=== PATIENT | female | born 1985 | race African-American/Black ===

== ENCOUNTER 2017-03-31 17:00 | Emergency (ER) | payer OTHER, MEDICAID ==
[~2017-03-31] VITALS: Ht 162.6 cm; Wt 90.7 kg
[~2017-03-31 17:00] MED LIST: FLEXERIL PO; IBUPROFEN 800800 M1 PO; NORCO 5-325 TA1 EACH PO
[2017-03-31] MEDS ORDERED: IBUPROFEN 800800 M1 PO (17:10)
[2017-03-31] MEDS ORDERED: CYCLOBENZAPRINE5 MG PO (17:10)
[2017-03-31] MEDS ORDERED: FLEXERIL PO (17:19)
[2017-03-31] MEDS ORDERED: NAPROSYN500 MG PO (17:19)
[2017-03-31] MEDS ORDERED: LIDODERM1 EACH TOP (17:19)
[2017-03-31 17:50] VITALS: BP 115/69
== END 2017-03-31 17:54 | disposition home or self-care (01) ==
LOC: M.ERS 17:00
DX: G44.209 Tension-type headache, unspecified, not intractable (principal); S39.012A Strain of muscle, fascia and tendon of lower back, initial encounter; Z88.8 Allergy status to other drugs, medicaments and biological substances; W10.8XXA Fall (on) (from) other stairs and steps, initial encounter; Y93.89 Activity, other specified; Y92.89 Other specified places as the place of occurrence of the external cause; Y99.8 Other external cause status

== ENCOUNTER 2017-10-31 12:36 | Emergency (ER) | payer OTHER, MEDICAID ==
[~2017-10-31] VITALS: Ht 157.5 cm; Wt 90.7 kg
[~2017-10-31 12:36] MED LIST changes: +CYCLOBENZAPRINE5 MG PO; +LIDODERM1 EACH TOP; +NAPROSYN500 MG PO
[2017-10-31 12:47] VITALS: BP 127/84
[2017-10-31] MEDS ORDERED: AMBIEN 5 MG TABL5 M1 PO (12:49)
[2017-10-31] MEDS ORDERED: AMOXICILLIN 50500 MG PO (13:04)
[2017-10-31] MEDS ORDERED: NORCO 5-325 TA1 EACH PO (13:04)
== END 2017-10-31 13:17 | disposition home or self-care (01) ==
LOC: M.ERS 12:36
DX: K02.9 Dental caries, unspecified (principal); G43.909 Migraine, unspecified, not intractable, without status migrainosus; G89.29 Other chronic pain; M54.9 Dorsalgia, unspecified; Z88.6 Allergy status to analgesic agent; Z88.8 Allergy status to other drugs, medicaments and biological substances

== ENCOUNTER 2018-03-03 12:35 | Emergency (ER) | payer OTHER, MEDICAID ==
[~2018-03-03] VITALS: Ht 157.5 cm; Wt 88.5 kg
[~2018-03-03 12:35] MED LIST changes: +AMBIEN 5 MG TABL5 M1 PO; +AMOXICILLIN 50500 MG PO
[2018-03-03] MEDS ORDERED: CLONAZEPAM 0.50.5 M1 PO (12:45)
[2018-03-03] MEDS ORDERED: PROTONIX 20 MG20 M1 PO (12:45)
[2018-03-03 13:07] LABS: ABSOLUTE EOSINOPHILS 0.1 thou/uL (0.0-0.7); ABSOLUTE LYMPHOCYTES 1.8 thou/uL (0.8-5.3); ABSOLUTE MONOCYTES 0.3 thou/uL (0.0-1.2); ABSOLUTE NEUTROPHILS 2.3 thou/uL (1.6-8.1); EOSINOPHILS 2.7 %; HEMATOCRIT 35.7 % (37.0-47.0); HEMOGLOBIN 11.6 gm/dL (12.0-15.0); MCH 25.8 pg (26.0-34.0); MCHC 32.6 g/dL (28.0-37.0); MCV 79.3 fL (80.0-100.0); MONOCYTES 6.7 %; MPV 7.9 fl. (7.2-11.1); NUCLEATED RBCS 0 /100WBC; PLATELET COUNT* 302 thou/uL (150-400); POLYS 50.6 %; RDW-CV 16.8 % (10.5-14.5); WBC 4.6 thou/uL (4.0-11.0)
[2018-03-03 13:09] LABS: URINE CLARITY CLOUDY; URINE COLOR RED
[2018-03-03 13:13] LABS: CALCIUM 9.2 mg/dL (8.5-10.1); CREATININE 0.9 mg/dL (0.6-1.3); POTASSIUM 3.5 mmol/L (3.5-5.1)
[2018-03-03 13:18] LABS: ALBUMIN 3.3 g/dL (3.4-5.0); TOTAL BILIRUBIN 0.4 mg/dL (<0.1-1.0); TOTAL PROTEIN 8.3 g/dL (6.4-8.2)
[2018-03-03 13:39] LABS: URINE SPECIFIC GRAVITY 1.025 (1.005-1.030)
[2018-03-03 13:40] LABS: ACETEST (KETONE CONFIRMATORY) Small (Negative); ICTOTEST (BILI CONFIRMATORY) Negative (Negative); URINE BILIRUBIN ND (Negative); URINE GLUCOSE-RANDOM ND (Negative); URINE KETONES ND (Negative); URINE PROTEIN ND (Negative); URINE REDUCING SUBSTANCE NEGATIVE (Negative)
[2018-03-03 13:41] LABS: URINE BLOOD ND (Negative); URINE LEUKOCYTES-REFLEX ND (Negative); URINE NITRITE-REFLEX ND (Negative); URINE UROBILINOGEN ND E.U./dl (0.2-1.0)
[2018-03-03 13:44] LABS: SQUAMOUS >10 Many /LPF (0-3)
[2018-03-03 13:46] LABS: URINE RBC >20 Many /HPF (0-2)
[2018-03-03 13:47] LABS: MUCUS >6 Heavy strn/LPF (None Seen)
[2018-03-03 13:51] LABS: BACTERIA-REFLEX >30 Many /HPF (None Seen); CASTS None Seen /LPF (None Seen); CRYSTALS None Seen /LPF (None Seen); URINE WBC-REFLEX 6-15 Few /HPF (0-5)
[2018-03-03] MEDS ORDERED: NORCO 5-325 TA1 EACH PO (15:26)
[2018-03-03] MEDS ORDERED: NYSTATIN100000 UNI PO (15:35)
[2018-03-03 15:36] VITALS: BP 110/79
== END 2018-03-03 15:37 | disposition home or self-care (01) ==
LOC: M.ERS 12:35
PROVIDERS: Physician Assistant
DX: N83.201 Unspecified ovarian cyst, right side (principal); G43.909 Migraine, unspecified, not intractable, without status migrainosus; M54.9 Dorsalgia, unspecified; G89.29 Other chronic pain; Z88.8 Allergy status to other drugs, medicaments and biological substances; Z88.6 Allergy status to analgesic agent

== ENCOUNTER 2018-03-28 19:25 | Emergency (ER) | payer OTHER, MEDICAID ==
[~2018-03-28] VITALS: Ht 157.5 cm; Wt 87.1 kg
[~2018-03-28 19:25] MED LIST changes: +CLONAZEPAM 0.50.5 M1 PO; +NYSTATIN100000 UNI PO; +PROTONIX 20 MG20 M1 PO
[2018-03-28 20:32] LABS: ABSOLUTE BASOPHILS 0.1 thou/uL (0.0-0.2); ABSOLUTE EOSINOPHILS 0.1 thou/uL (0.0-0.7); ABSOLUTE MONOCYTES 0.4 thou/uL (0.0-1.2); ABSOLUTE NEUTROPHILS 2.3 thou/uL (1.6-8.1); BASOPHILS 1.1 %; EOSINOPHILS 1.9 %; HEMATOCRIT 32.8 % (37.0-47.0); HEMOGLOBIN 10.7 gm/dL (12.0-15.0); LYMPHOCYTES 42.1 %; MCH 26.2 pg (26.0-34.0); MCHC 32.6 g/dL (28.0-37.0); MCV 80.4 fL (80.0-100.0); MONOCYTES 7.3 %; MPV 7.5 fl. (7.2-11.1); NUCLEATED RBCS 0 /100WBC; PLATELET COUNT* 261 thou/uL (150-400); POLYS 47.6 %; RBC 4.08 mil/uL (4.20-5.00); RDW-CV 17.3 % (10.5-14.5); WBC 4.9 thou/uL (4.0-11.0)
[2018-03-28 20:40] LABS: CALCIUM 8.5 mg/dL (8.5-10.1); CREATININE 0.9 mg/dL (0.6-1.3); POTASSIUM 3.5 mmol/L (3.5-5.1)
[2018-03-28 20:48] LABS: ALBUMIN 3.2 g/dL (3.4-5.0); TOTAL BILIRUBIN 0.3 mg/dL (<0.1-1.0); TOTAL PROTEIN 7.7 g/dL (6.4-8.2)
[2018-03-28 22:11] LABS: URINE BILIRUBIN NEGATIVE (Negative); URINE BLOOD TRACE (Negative); URINE CLARITY CLEAR; URINE COLOR YELLOW; URINE GLUCOSE-RANDOM NEGATIVE (Negative); URINE KETONES NEGATIVE (Negative); URINE LEUKOCYTES-REFLEX 1+ (Negative); URINE NITRITE-REFLEX NEGATIVE (Negative); URINE PROTEIN NEGATIVE (Negative)
[2018-03-28 22:22] LABS: MUCUS 4-6 Moderate strn/LPF (None Seen); SQUAMOUS >10 Many /LPF (0-3)
[2018-03-28 22:23] LABS: AMP/METHAMP Negative (Negative); BARBITURATES Negative (Negative); BENZODIAZEPINES Negative (Negative); COCAINE Negative (Negative); METHADONE Negative (Negative); OPIATES POSITIVE (Negative); PCP Negative (Negative); THC Negative (Negative)
[2018-03-28] MEDS ORDERED: ZOFRAN ODT4 MG PO (22:23)
[2018-03-28] MEDS ORDERED: PEPCID20 MG PO (22:23)
[2018-03-28] MEDS ORDERED: CARAFATE 1 GM TA1 GM PO (22:23)
[2018-03-28 22:24] LABS: BACTERIA-REFLEX 1-9 Few /HPF (None Seen); CASTS None Seen /LPF (None Seen); CRYSTALS None Seen /LPF (None Seen); URINE RBC 0-2 Rare /HPF (0-2); URINE WBC-REFLEX 0-5 Rare /HPF (0-5)
[2018-03-28 22:36] VITALS: BP 107/74
== END 2018-03-28 22:37 | disposition home or self-care (01) ==
LOC: M.ERS 19:25
PROVIDERS: Emergency Medicine
DX: R10.13 Epigastric pain (principal); G43.909 Migraine, unspecified, not intractable, without status migrainosus; M54.9 Dorsalgia, unspecified; G89.29 Other chronic pain; Z88.8 Allergy status to other drugs, medicaments and biological substances; R11.2 Nausea with vomiting, unspecified